=== PATIENT | female | born 2000 | race Caucasian/White ===

== ENCOUNTER 2022-08-27 21:01 | Emergency (ER) | payer BC ==
--- OUTSIDE RECORDS SUMMARY | 2022-08-27 21:04 | XMS REPORT | Continuity of Care Document ---
:2000 Author Organization [facility] t Address [address] [place] [address] Care Team Providers Name Role Phone PCP, PATIENT DOES NOT HAVE A Primary Care Physician UnavailVICKI Mendoza Attending Clinician Unavailable Vicki Ramos MD Attending Clinician Unknown, Attending Attending Clinician Unavailable Frantz Santizo MD Attending Clinician Brenda Cifuentes Attending Clinician FRANTZ SANTIZO Attending Clinician Unavailable Payers Payer Name Policy Type Policy Number Effective Date Expiration Date S ource [facility] [id number] 2022 00:00:00 [employer] II [id number] 2020 00:00:00 Problems Condition Condition Condition Status Onset Resolution Last Treating Co mments Source Name Details Category Date Date Treatment Clinician Date No known No known Disease Unive rs active active ity of problems problems [facility] Allergies, Adverse Reactions, Alerts Allergy Allergy Status Severity Reaction(s) Onset Inactive Treating Comm ents Source Name Type Date Date Clinician NO KNOWN Drug Active Univers ALLERGIE Class ity of S [facility] Social History Social Habit Start Date Stop Date Quantity Comments Source Exposure to 2022-07-26 2022-08-05 Not sure University SARS-CoV-2 00:00:00 09:04:00 [facility] (event) [place] Tobacco use and 2022-04-17 2022-04-17 Smokeless tobacco Un iversity of exposure 00:00:00 00:00:00 non-user [facility] Sex Assigned At [birth year] Universit y of 00:00:00 00:00:00 [facility] Smoking Status Start Date Stop Date Source Never smoked tobacco [facility] Medications Ordered Filled Start Stop Current Ordering Indication Dosage Frequency Signature Comments Components Source Medication Medication Date Date Medication? Clinician (SIG) Name Name pantoprazol 2021-10 Yes [id number] 40mg Take 1 Univers e 40 mg EC 0-29 tablet by ity of tablet 00:00: mouth in [place] 00 the Medical morning. Branch ondansetron 2021-10 Yes [id number] 4mg Take 1 Univers 4 mg tablet 0-29 tablet by ity of 00:00: mouth [place] 00 every 4 Medical (four) Branch hours as needed for Nausea and Vomiting (N/V). benzonatate Yes [id number] 200mg Take 2 Univers 100 mg 7-11 capsules ity of capsule 00:00: by mouth [place] 00 every 8 Medical (eight) Branch hours as needed for Cough. benzonatate Yes [id number] 200mg Take 2 Univers 100 mg 7-11 capsules ity of capsule 00:00: by mouth [place] 00 every 8 Medical (eight) Branch hours as needed for Cough. Immunizations Ordered Filled Immunization Date Status Comments Sourc e Immunization Name Name SARS-COV-2 COVID-19 2021-02-09 Completed Unive rsity of MODERNA VACCINE 00:00:00 [facility] SARS-COV-2 COVID-19 2021-02-09 Completed Unive rsity of MODERNA 12+ YRS 00:00:00 [facility] SARS-COV-2 COVID-19 2021-01-12 Completed Unive rsity of MODERNA VACCINE 00:00:00 [facility] SARS-COV-2 COVID-19 2021-01-12 Completed Unive rsity of MODERNA 12+ YRS 00:00:00 [facility] Vital Signs Vital Name Observation Time Observation Value Comments Source Systolic blood 2022-08-05 14:17:00 115 mm[Hg] Univer sity of pressure [facility] Diastolic blood 2022-08-05 14:17:00 76 mm[Hg] Unive rsity of pressure [facility] Heart rate 2022-08-05 14:17:00 75 /min [facility] Body temperature 2022-08-05 14:17:00 37 Maria Isabel Univ ersity [facility] Respiratory rate 2022-08-05 14:17:00 16 /min Univ ersity of [facility] Body weight 2022-08-05 14:17:00 99.338 kg Universi ty of [facility] Oxygen saturation in 2022-08-05 14:17:00 100 /min University of Arterial blood by [facility] Pulse oximetry Branch Systolic blood 2022-04-17 23:32:00 130 mm[Hg] Univer sity of pressure [facility] Diastolic blood 2022-04-17 23:32:00 84 mm[Hg] Unive rsity of pressure [facility] Heart rate 2022-04-17 23:32:00 125 /min Universi ty of [facility] Body temperature 2022-04-17 23:32:00 37.44 Maria Isabel [facility] Respiratory rate 2022-04-17 23:32:00 20 /min Univ ersity of [facility] Body height 2022-04-17 23:32:00 165.1 cm Universi ty of [facility] Body weight 2022-04-17 23:32:00 96.48 kg Universi ty of [facility] Branch BMI 2022-04-17 23:32:00 35.40 kg/m2 Universi ty of [facility] Oxygen saturation in 2022-04-17 23:32:00 98 /min University of Arterial blood by [facility] Pulse oximetry Branch Procedures This patient has no known procedures. Encounters Start End Encounter Admission Attending Care Care Encounter Source Date/Time Date/Time Type Type Clinicians Facility Department ID 2022-08-05 2022-08-05 Outpatient R JOSH [facility] [id number] [facility] 09:20:00 09:21:38 , VICKI itglenn of [facility] 2022-08-05 2022-08-[address] [facility] [id number] Univers 09:20:00 09:21:38 Care Unknown, Attending HEALTH [id number] ity [facility] [id number] [place] as MELISSA?BLEA [id number] [address] MEDICAL OFFICE BUILDING 2022-04-17 2022-04-[address] [facility] [id number] [facility] 18:20:00 18:40:00 [facility] [id number] [facility] [id number] [place] as MELISSA?BLEA [phone] [address] MEDICAL OFFICE [facility] 2022-04-17 2022-04-17 Outpatient Shanice SANTIZO [facility] [id number] [facility] 18:20:00 18:20:00 FRANTZ munoz [facility] Results This patient has no known results.
--- NOTE | 2022-08-27 22:09 | RAD REPORT ---
EXAM DESCRIPTION: RAD - Chest Single View - 08/27/2022 10:01 pm CLINICAL HISTORY: CHEST PAIN Chest pain. COMPARISON: No comparisons FINDINGS: Portable technique limits examination quality. The lungs are grossly clear. The heart is normal in size. No displaced fractures. IMPRESSION: No acute intrathoracic process suspected.
--- NOTE | 2022-08-27 22:48 | ER ---
Nurse's Notes [facility] Name: Enedina Diaz Age: 22 yrs Sex: Female : 2000 Arrival Date: 08/27/2022 Time: 21:02 Bed Waiting Private MD: Diagnosis: Presentation: 08/27 22:13 Chief complaint: Patient states: "I'm having chest pain" EMS states: called out for as6 chest pain. EMS reports tachycardia, at time of triage pt HR is 87. Coronavirus screen: At this time, the client does not indicate any symptoms associated with coronavirus-19. Ebola Screen: No symptoms or risks identified at this time. Initial Sepsis Screen: Does the patient meet any 2 criteria? No. Patient's initial sepsis screen is negative. Does the patient have a suspected source of infection? No. Patient's initial sepsis screen is negative. Risk Assessment: Do you want to hurt yourself or someone else? Patient reports no desire to harm self or others. Onset of symptoms was August 27, 2022 at 18:00. 22:13 Method Of Arrival: EMS: [facility] as6 22:13 Acuity: DORA 3 as6 Historical: - Allergies: 22:20 No Known Allergies; as6 - Home Meds: 22:20 pantoprazole oral [Active]; sertraline oral [Active]; buspirone Oral [Active]; as6 - PMHx: 22:20 Anxiety; Depressive disorder; GERD; as6 - PSHx: 22:20 None; as6 - Immunization history:: Client reports receiving the 2nd dose of the Covid vaccine, moderna. - Social history:: Smoking status: Patient denies any tobacco usage or history of. Assessment: 22:47 General: Called in lobby no answer. jb4 Vital Signs: 22:13 BP 113 / 74; Pulse 87; Resp 18 S; Temp 97.8(O); Pulse Ox 100% on R/A; Weight 95.25 kg as6 (R); Height 5 ft. 5 in. (165.10 cm) (R); Pain 4/10; 22:13 Body Mass Index 34.95 (95.25 kg, 165.10 cm) as6 ED Course: 21:02 Patient arrived in ED. as 21:17 Silvia Taveras MD is Attending Physician. sd2 22:03 XRAY Chest (1 view) In Process Unspecified. EDMS 22:20 Triage completed. as6 22:21 Arm band placed on. as6 Administered Medications: No medications were administered Outcome: 22:47 Patient left the ED. jb4 23:37 Patient left the ED. as6 23:37 Patient left the ED. as6 Signatures: Dispatcher [employer] EDMS Anaid Oglesby James, RN RN jb4 Roger Tracey, JUANA RN as6 Silvia Taveras MD MD sd2
--- NOTE | 2022-08-27 22:48 | EDPHYS ---
Physician Documentation [facility] Name: Enedina Diaz Age: 22 yrs Sex: Female : 2000 Arrival Date: 08/27/2022 Time: 21:02 Bed Waiting Private MD: ED Physician HPI: 08/27 21:17 This 22 yrs old Female presents to ER via Unassigned with complaints of Chest Pain. sd2 21:17 22 yo F brought in by EMS with CC of chest pain. Reports chest pain started just prior sd2 to calling EMS with associated anxiety. pt has hx of this previously and took an unknown home medication for it which did not help so she called EMS. Pt was noted to be tachycardic in the 110s en route. . Historical: - Allergies: 22:20 No Known Allergies; as6 - Home Meds: 22:20 pantoprazole oral [Active]; sertraline oral [Active]; buspirone Oral [Active]; as6 - PMHx: 22:20 Anxiety; Depressive disorder; GERD; as6 - PSHx: 22:20 None; as6 - Immunization history:: Client reports receiving the 2nd dose of the Covid vaccine, moderna. - Social history:: Smoking status: Patient denies any tobacco usage or history of. ROS: 21:17 Constitutional: Negative for fever, chills, and weight loss, Eyes: Negative for injury, sd2 pain, redness, and discharge. 21:17 Respiratory: Negative for shortness of breath, cough, wheezing. Abdomen/GI: Negative for abdominal pain, nausea, vomiting, diarrhea. MS/Extremity: Negative for injury and deformity, Skin: Negative for injury, rash, and discoloration, Neuro: Negative for headache, numbness and tingling. 21:17 Cardiovascular: Positive for chest pain, Negative for edema, orthopnea. Exam: 21:17 Constitutional: This is a well developed, well nourished patient who is awake, alert, sd2 and in no acute distress. Head/Face: Normocephalic, atraumatic. Eyes: EOMI, normal conjunctiva bilaterally Chest/axilla: Normal chest wall appearance and motion. Nontender with no deformity. Cardiovascular: Tachycardic rate and regular rhythm with a normal S1 and S2. No gallops, murmurs, or rubs. 2+ distal pulses. Respiratory: Lungs have equal breath sounds bilaterally, clear to auscultation and percussion. No rales, rhonchi or wheezes noted. No increased work of breathing, no retractions or nasal flaring. Abdomen/GI: Soft, non-tender, with normal bowel sounds. No guarding or rebound. No evidence of tenderness throughout. Skin: Warm, dry with normal turgor. Normal color with no rashes, no lesions, and no evidence of cellulitis. MS/ Extremity: Pulses equal, no cyanosis. Neurovascular intact. Full, normal range of motion. Ambulatory without difficulty. Psych: Awake, alert, with orientation to person, place and time. Behavior, mood, and affect are within normal limits. 22:29 ECG was reviewed by the Attending Physician. NSR, rate 78, no STEMI criteria, sinus sd2 arrhythmia present Vital Signs: 22:13 BP 113 / 74; Pulse 87; Resp 18 S; Temp 97.8(O); Pulse Ox 100% on R/A; Weight 95.25 kg as6 (R); Height 5 ft. 5 in. (165.10 cm) (R); Pain 4/10; 22:13 Body Mass Index 34.95 (95.25 kg, 165.10 cm) as6 MDM: 21:17 Differential diagnosis: Differential diagnosis includes but is not limited to: ACS, sd2 DVT/PE, pneumothorax, dissection, musculoskeletal, anxiety, anemia, electrolyte abnormality, pneumonia, CHF, COPD among others. Data reviewed: vital signs, nurses notes, EMS record. 22:22 Patient medically screened. sd2 08/27 21:02 Order name: XRAY Chest (1 view); Complete Time: 22:23 sd2 08/27 21:02 Order name: EKG - Nurse/Tech; Complete Time: 22:24 sd2 Administered Medications: No medications were administered Disposition Summary: 08/27/22 22:47 Eloped Disposition: before being seen by provider adolph Reason: unknown adolph Signatures: Dispatcher [employer] EDMS Hung Valdivia RN RN jb4 Roger Tracey RN RN as6 Silvia Taveras MD MD sd2
[2022-08-27 22:51] VITALS: BP 113/74; TEMP 97.8; O2SAT 100
--- NOTE | 2022-08-28 15:28 | EKG ---
Test Date: 2022-08-27 Test Time: 22:23:18 Tension Worker: MEASUREMENT RESULTS: Intervals: Rate: 78 OH: 132 QRSD: 80 QT: 372 QTc: 424 [place]: P: 30 OH: 132 QRS: 53 T: 74 INTERPRETIVE STATEMENTS: Sinus rhythm with marked sinus arrhythmia Nonspecific ST abnormality Abnormal ECG No previous ECG available for comparison Electronically Signed On 08-28-22 15:27:34 MANUFACTURING PROJECT ENGINEER by Herb Arroyo
== END 2022-08-27 23:37 | disposition left against medical advice (07) ==
LOC: ER 21:01
DX: R07.9 Chest pain, unspecified (principal)
CPT/HCPCS: 71045; 93005; 99283